=== PATIENT | male | born 1985 | race Caucasian/White ===

== ENCOUNTER 2025-06-21 10:56 | Emergency (ER) | payer MEDICAID ==
[~2025-06-21] VITALS: Ht 177.8 cm; Wt 69.3 kg
[2025-06-21 10:57] VITALS: TEMP 98.8
[2025-06-21 11:44] LABS: MEAN PLATELET VOLUME 7.6 FL (7.4-10.4); RED CELL DISTRIBUTION WIDTH 14.0 % (11.5-14.5)
[2025-06-21 12:06] LABS: CREATININE 1.09 MG/DL (0.60-1.10); TOTAL CARBON DIOXIDE 29.0 MMOL/L (24-32); eCRCL 87 ML/MIN; eGFR 75 ML/MIN
--- NOTE | 2025-06-21 12:10 | RADIOLOGY REPORT ---
EXAM: CT CT HEAD INDICATION: Pressure, pain, TECHNIQUE: CT of the head without intravenous contrast. Radiation Dose : 1. Head: CT Dose: CTDI volume is 65 mGy. Dose-length product is 1133 mGy*cm The dose indicators for CT are the volume Computed Tomography (CT) Dose Index (CTDIvol) and the Dose Length Product (DLP), and are measured in units of mGy and mGy-cm, respectively. These indicators are not patient dose, but values generated from the CT scanner acquisition factors. The report includes radiation exposure data for exposures received during this examination. COMPARISON: None FINDINGS: There is no evidence of acute intracranial hemorrhage, extra-axial collection, mass effect, midline s hift, herniation or hydrocephalus. The ventricles, sulci and cisterns are age appropriate. The gold-white differentiation is intact. The visualized paranasal sinuses and mastoid air cells are clear. The surrounding soft tissues and osseous structures are unremarkable. IMPRESSION: No acute intracranial abnormality. Radiation optimization: All CT scans at this facility use at least one of these dose optimization marv hniques: automated exposure control mA and/or kV adjustment per patient size (includes targeted exam s where dose is matched to clinical indication) or iterative reconstruction.
--- NOTE | 2025-06-21 12:51 | Physician Documentation ---
History of Present Illness ~ Chief Complaint: Head Pain Stated Complaint: EAR PAIN Time Seen by MD: 12:50 Mode of Arrival: POV, Ambulatory HPI 39-year-old male presenting with right ear pain He tells me that over the past several weeks to 1 month, he has had pain in his right ear. He states it is a pressure sensation, deep in the ear, with the associated decreased hearing and a pressure sensation of the back of his head. He does have a history of ear infections and ear wax problems in the past. He has not been putting anything in his ear recently. No fevers, chills or other infectious type symptoms. He is concerned because his father had a tumor around his ear, and he is concerned that he could have a tumor. Medication Reconciliation Allergies: Coded Allergies: No Known Allergies (Unverified , 06/21/25) Review of Systems ENT: Reports: ear pain, hearing loss; Denies: ear discharge Physical Exam Vital Signs: Temperature: 98.8, Source: Temporal, Heart Rate: 72, Respiratory Rate: 16, BP: 121/90, Pulse Oximetry: 98, Weight: 69.300 Oxygen Flow Rate: 0 Physical Exam General: This is a pleasant and mildly anxious appearing young man, not in distress HEENT: Atraumatic, oropharynx is moist Right ear: No external changes including no erythema, swelling, or tenderness around the external ear. The internal auditory canal is completely occluded with wax. Heart: Regular rate and rhythm, normal-appearing peripheral perfusion Lungs: normal work of breathing, normal oxygen saturation on room air Neuro: Alert and oriented, slightly decreased hearing from the right ear Psychiatric: Mildly anxious but is cooperative with exam Progress Results/Orders Results/Orders Vital Signs 06/21/25 06/21/25 06/21/25 06/21/25 10:57 12:01 12:10 13:17 Temp 98.8 Pulse 85 72 68 Resp 16 16 16 16 B/P (MAP) 126/82 121/90 (100) 112/85 (94) Pulse Ox 98 98 95 O2 Flow Rate 0 Laboratory Tests Test 06/21/25 11:32 White Blood Count 7.7 Red Blood Count 5.12 Hemoglobin 16.2 Hematocrit 47.2 Mean Corpuscular Volume 92.2 Mean Corpuscular Hemoglobin 31.7 H Mean Corpuscular Hemoglobin Concent 34.4 Red Cell Distribution Width 14.0 Platelet Count 266 Mean Platelet Volume 7.6 Neutrophils (%) (Auto) 64.0 Lymphocytes (%) (Auto) 28.6 Monocytes (%) (Auto) 6.6 Eosinophils (%) (Auto) 0.5 Basophils (%) (Auto) 0.3 Neutrophils # (Auto) 4.9 Lymphocytes # (Auto) 2.2 Monocytes # (Auto) 0.5 Eosinophils # (Auto) 0.0 Basophils # (Auto) 0.0 CBC Comment Sodium Level 141 Potassium Level 4.1 Chloride Level 106 Carbon Dioxide Level 29.0 Anion Gap 6 L Blood Urea Nitrogen 15 Creatinine 1.09 Estimated GFR/1.73 m2 75 BUN/Creatinine Ratio 13.8 Glucose Level 112 H Calcium Level 9.3 Total Bilirubin 0.7 Aspartate Amino Transf (AST/SGOT) 20 Alanine Aminotransferase (ALT/SGPT) 18 Alkaline Phosphatase 63 Total Protein 8.0 Albumin 4.4 Globulin 3.6 Albumin/Globulin Ratio 1.2 Chemistry Comments Re-Evaluation Re-Evaluation : Progress Re-evaluation: After irrigation, the patient's ear is now cleared of ear wax. His tympanic membrane is gold and nonbulging. His symptoms have resolved. EKG/XRAY/CT/US/VASC/MRI CT : Impression I personally reviewed the CT scan, and this shows no acute intracranial hemorrhage, mass, or obvious abnormality to the region of the ear Medical Decision Making Additional Comment The patient presents with right ear pain and change in his hearing. Head CT and labs ordered at triage are unremarkable. On exam he has findings consistent with cerumen impaction. His ear was irrigated and cleaned out, with improvement of his symptoms. No evidence of otitis media or other dangerous process. He will be discharged with home care instructions and outpatient follow up. Departure Time of Disposition: 15:54 Disposition: 01 HOME / SELF CARE / HOMELESS Impression: Primary Impression: Impacted cerumen of right ear Referrals: NO PRIMARY CARE PROVIDER (PCP) Education Educated: Patient Educated regarding: diagnosis, treatment, need for follow up Signature Scribe Signature: guru Attestation: CESAR Craey MD Jun 21, 2025 12:51
[2025-06-21 13:17] VITALS: BP 112/85; PULSE 68; RESP 16; O2SAT 95
== END 2025-06-21 16:05 | disposition home or self-care (01) ==
LOC: ER 10:56
DX: H61.21 Impacted cerumen, right ear (principal)
CPT/HCPCS: 36415; 69209; 70450; 80053; 85025; 99284